=== PATIENT | male | born 1995 | race Caucasian/White ===

== ENCOUNTER 2016-03-24 20:08 | Emergency (ER) | payer OTHER ==
[2016-03-24] MEDS ORDERED: NORCO 5/325MG TABLET (BULK) As Ordered ONE (22:19)
[2016-03-24] MEDS ORDERED: IBUPROFEN 600 MG TAB As Ordered ONE (22:19)
--- NOTE | 2016-03-24 22:33 | EDDOCDS ---
Nurse's Notes [facility] Name: Manuel Parekh Age: 20 yrs Sex: Male : 1995 Arrival Date: 03/24/2016 Time: 20:08 Bed TR7 Private [facility] Diagnosis: Nondisplaced fracture of right tibial tuberosity-avulsion and suspected patellar tendon disruption Presentation: 03/24 20:28 Presenting complaint: Patient states: that he twisted his R knee today and he can't ms18 bend it at this time. Adult Sepsis Screening: The patient does not have new or worsening altered mentation. Patient's respiratory rate is less than 22. Systolic blood pressure is greater than 100. Patient has a qSOFA score of 0- Negative Sepsis Screen. Suicide/Homicide risk assessment- the patient denies having any suicidal and/or homicidal ideations and does not present with any other emotional, behavioral or mental health complaints. 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 Transition of care: patient was not received from another setting of care. 20:28 Acuity: ELIOT Level 4 ms18 20:28 Method Of Arrival: Walkin/Carried/Asstd ms18 Triage Assessment: 20:30 General: Appears in no apparent distress, uncomfortable, Behavior is appropriate for ms18 age, cooperative. Pain: Location: right knee Pain currently is 9 out of 10 on a pain scale. HIV screening NA for this visit Offered previously. Neurological: Level of Consciousness is awake, alert, obeys commands. Respiratory: No deficits noted. Derm: Skin is pink, warm & dry. Historical: - Allergies: no known allergies; - Home Meds: 1. gabapentin 600 mg Oral tab 1 tab 3 times per day 2. naproxen 500 mg Oral tab as needed - PMHx: back pain; - PSHx: none; - Social history: Smoking status: Patient states was never smoker of tobacco. No barriers to communication noted, The patient speaks fluent Latvian. - Family history: Not pertinent. - : The pt / caregiver states he / she is not on anticoagulants. Home medication list is obtained from the patient. - Exposure Risk Screening:: None identified. Screenin:30 Screening information is obtained from the patient. Fall risk: No risks identified. pml Assistance ADL's: requires no assistance with activities of daily living. Abuse/DV Screen: The patient / caregiver reports he/she is: not in a situation that causes fear, pain or injury. Nutritional screening: No deficits noted. Advance Directives: Currently, there is no health care proxy. home support is adequate. Assessment: 22:30 General: Appears in no apparent distress, comfortable, Behavior is appropriate for age, pml cooperative. Pain: Location: right knee. Neurological: Level of Consciousness is awake, alert, Oriented to person, place, time. Cardiovascular: Capillary refill < 3 seconds. Respiratory: Airway is patent Respiratory effort is even, unlabored. GI: Abdomen is non- distended. Derm: Skin is pink, warm & dry. Musculoskeletal: Circulation, motion, and sensation intact Capillary refill < 3 seconds No deformity noted. Vital Signs: 20:09 BP 133 / 65; Pulse 73; Resp 18 S; Temp 96.9(O); Pulse Ox 100% on R/A; Weight 92.08 kg dd6 (R); Height 6 ft. 2 in. (187.96 cm) (R); 20:09 Body Mass Index 26.06 (92.08 kg, 187.96 cm) dd6 Vitals: 20:09 Log In Time: March 24, 2016 at 20:07. dd6 ED Course: 20:09 Patient visited by Eladio Leal PCA. dd6 20:09 [facility]. dd6 20:09 Patient moved to Waiting dd6 20:10 Patient moved to Pre RCE dd6 20:30 Triage Initiated ms18 21:30 Patient moved to Triage 2 pml 21:38 Sadiq Eilas PA is PHCP. mo1 21:38 Isra Miguel DO is Attending Physician. mo1 21:42 Patient moved to TR1 jmb 21:42 Patient moved to Triage 2 jmb 21:56 Patient visited by Sadiq Elias PA. mo1 22:24 Nikko Rock is Referral Physician. mo1 22:29 Patient visited by Chasidy Ferguson PCA. ar3 22:29 Patient moved to TR7 ar3 22:29 Crutch training done. Knee immobilizer applied on right knee. ar3 22:30 The patient / caregiver is instructed regarding the plan of care and ED course. Patient pml has correct armband on for positive identification. Bed in low position. Call light in reach. 22:30 No IV's were initiated during this patient's visit. No procedures done that require pml assistance. Administered Medications: 22:21 Drug: Ibuprofen 600 mg [ibuprofen 600 mg tablet (1 tabs)] Route: PO; pml 22:27 Drug: HYDROcodone-acetaminophen 4 pack- 1 packets [hydrocodone 5 mg-acetaminophen 325 pml mg tablet (1 tabs)] {Co-Signature: emilia (Andrew Manzano RN).} Route: PO; 22:32 Follow up: Response: Med's dispensed home pml Order Results: There are currently no results for this order. Outcome: 22:24 Discharge ordered by Provider. mo1 22:30 Discharge Assessment: Patient awake, alert and oriented x 3. No cognitive and/or pml functional deficits noted. Patient verbalized understanding of disposition instructions. patient administered narcotics - no. The following High Risk Discharge criteria are identified: None. Discharged to home ambulatory, with crutches. Condition: good Condition: stable. Discharge instructions given to patient, Instructed on discharge instructions, follow up and referral plans. medication usage, no driving heavy equipment, crutch walking, Demonstrated understanding of instructions, medications, Pt was receptive of discharge instructions/ teaching. Prescriptions given X 1. No special radiology studies were completed. Property sent home with patient. 22:32 Patient left the ED. pml Signatures: Eladio Leal, INSTRUMENT INSTALLER INSTRUMENT INSTALLER dd6 Chasidy Ferguson, INSTRUMENT INSTALLER INSTRUMENT INSTALLER ar3 Ragini Glass RN RN pml Sadiq Elias PA PA mo1 Andrew Manzano RN RN jmb Smith, Mallory, RN RN ms18 Andrew nieto MTDD
--- NOTE | 2016-03-24 22:33 | EDDOCDS ---
Physician Documentation [facility] Name: Manuel Parekh Age: 20 yrs Sex: Male : 1995 Arrival Date: 03/24/2016 Time: 20:08 Bed TR7 Private MD: NVTaina COLEMAN Disposition: 03/24/16 22:24 Discharged to Home/Self Care. Impression: Nondisplaced fracture of right tibial tuberosity - avulsion and suspected patellar tendon disruption. - Condition is Stable. - Discharge Instructions: Knee Bracing, Knee Fracture, Adult. - Prescriptions for [place] 5- 325 mg Oral Tablet - take 1 tablet by ORAL route every 6 hours As needed MDD: 4 tabs; 20 tablet. - Medication Reconciliation, Local Pharmacy Hours form. - Follow up: Nikko Rock; When: Call to arrange an appointment; Reason: Recheck today's complaints, Continuance of care. - Problem is new. - Symptoms are unchanged. Historical: - Allergies: no known allergies; - Home Meds: 1. gabapentin 600 mg Oral tab 1 tab 3 times per day 2. naproxen 500 mg Oral tab as needed - PMHx: back pain; - PSHx: none; - Social history: Smoking status: Patient states was never smoker of tobacco. No barriers to communication noted, The patient speaks fluent Bulgarian. - Family history: Not pertinent. - : The pt / caregiver states he / she is not on anticoagulants. Home medication list is obtained from the patient. - Exposure Risk Screening:: None identified. Vital Signs: 03/24 20:09 BP 133 / 65; Pulse 73; Resp 18 S; Temp 96.9(O); Pulse Ox 100% on R/A; Weight 92.08 kg / dd6 203 lbs (R); Height 6 ft. 2 in. (187.96 cm) (R); 20:09 Body Mass Index 26.06 (92.08 kg, 187.96 cm) dd6 MDM: 21:41 Knee, Complete Ordered. EDMS 22:17 Knee Immobilizer ordered. mo1 22:17 Crutches ordered. mo1 22:17 Ibuprofen 600 mg PO once ordered. mo1 22:17 HYDROcodone-acetaminophen 4 pack- 5 mg-325 mg 1 packets PO Per package directions; mo1 Dispense with patient. 1 po q4h prn for pain ordered. Administered Medications: 22:21 Drug: Ibuprofen 600 mg [ibuprofen 600 mg tablet (1 tabs)] Route: PO; pml 22:27 Drug: HYDROcodone-acetaminophen 4 pack- 1 packets [hydrocodone 5 mg-acetaminophen 325 pml mg tablet (1 tabs)] {Co-Signature: emilia (Andrew Manzano RN).} Route: PO; 22:32 Follow up: Response: Med's dispensed home pml Signatures: Dispatcher [employer] EDMS Ragini Glass RN RN pml Sadiq Elias PA PA mo1 Karissa Stoddard RN RN ms18 Andrew nieto The chart was reviewed and I authenticate all verbal orders and agree with the evaluation and treatment provided.Corrections: (The following items were deleted from the chart) 21:41 21:15 Knee, (AP\E\Lat)+XR ordered. EDMS EDMS 21:52 21:41 Knee, complete ordered. EDMS EDMS MTDD
--- NOTE | 2016-03-25 01:11 | REP ---
Clinical: Trauma. Technique: AP, lateral, bilateral oblique and sunrise views right knee . Findings: The osseous structures and joint spaces are intact and normal. There is no evidence for acute fracture or dislocation. No joint effusion is appreciated. Lateral view demonstrates unfused tibial tuberosity with overlying mild soft tissue swelling which requires correlation to exclude [place]lake-Schlatter disease. No subcutaneous emphysema or radiodense foreign body. Impression: No acute fracture or dislocation. Lateral view demonstrates unfused tibial tuberosity with overlying mild soft tissue swelling which requires correlation to exclude Eastlake-Schlatter disease. Signed by Lizandro Maddox MD 03/25/2016 01:02 A
--- NOTE | 2016-03-26 23:33 | EDDOCDS ---
Nurse's Notes [facility] Name: Manuel Parekh Age: 20 yrs Sex: Male : 1995 Arrival Date: 03/24/2016 Time: 20:08 Bed TR7 [facility] Diagnosis: Nondisplaced fracture of right tibial tuberosity-avulsion and suspected patellar tendon disruption Presentation: 03/24 20:28 Presenting complaint: Patient states: that he twisted his R knee today and he can't ms18 bend it at this time. Adult Sepsis Screening: The patient does not have new or worsening altered mentation. Patient's respiratory rate is less than 22. Systolic blood pressure is greater than 100. Patient has a qSOFA score of 0- Negative Sepsis Screen. Suicide/Homicide risk assessment- the patient denies having any suicidal and/or homicidal ideations and does not present with any other emotional, behavioral or mental health complaints. 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 Transition of care: patient was not received from another setting of care. 20:28 Acuity: ELIOT Level 4 ms18 20:28 Method Of Arrival: Walkin/Carried/Asstd ms18 Triage Assessment: 20:30 General: Appears in no apparent distress, uncomfortable, Behavior is appropriate for ms18 age, cooperative. Pain: Location: right knee Pain currently is 9 out of 10 on a pain scale. HIV screening NA for this visit Offered previously. Neurological: Level of Consciousness is awake, alert, obeys commands. Respiratory: No deficits noted. Derm: Skin is pink, warm & dry. Historical: - Allergies: no known allergies; - Home Meds: 1. gabapentin 600 mg Oral tab 1 tab 3 times per day 2. naproxen 500 mg Oral tab as needed - PMHx: back pain; - PSHx: none; - Social history: Smoking status: Patient states was never smoker of tobacco. No barriers to communication noted, The patient speaks fluent Sami. - Family history: Not pertinent. - : The pt / caregiver states he / she is not on anticoagulants. Home medication list is obtained from the patient. - Exposure Risk Screening:: None identified. Screenin:30 Screening information is obtained from the patient. Fall risk: No risks identified. pml Assistance ADL's: requires no assistance with activities of daily living. Abuse/DV Screen: The patient / caregiver reports he/she is: not in a situation that causes fear, pain or injury. Nutritional screening: No deficits noted. Advance Directives: Currently, there is no health care proxy. home support is adequate. Assessment: 22:30 General: Appears in no apparent distress, comfortable, Behavior is appropriate for age, pml cooperative. Pain: Location: right knee. Neurological: Level of Consciousness is awake, alert, Oriented to person, place, time. Cardiovascular: Capillary refill < 3 seconds. Respiratory: Airway is patent Respiratory effort is even, unlabored. GI: Abdomen is non- distended. Derm: Skin is pink, warm & dry. Musculoskeletal: Circulation, motion, and sensation intact Capillary refill < 3 seconds No deformity noted. Vital Signs: 20:09 BP 133 / 65; Pulse 73; Resp 18 S; Temp 96.9(O); Pulse Ox 100% on R/A; Weight 92.08 kg dd6 (R); Height 6 ft. 2 in. (187.96 cm) (R); 20:09 Body Mass Index 26.06 (92.08 kg, 187.96 cm) dd6 Vitals: 20:09 Log In Time: March 24, 2016 at 20:07. dd6 ED Course: 20:09 Patient visited by Eladio Leal PCA. dd6 20:09 [facility]. dd6 20:09 Patient moved to Waiting dd6 20:10 Patient moved to Pre RCE dd6 20:30 Triage Initiated ms18 21:30 Patient moved to Triage 2 pml 21:38 Sadiq Elias PA is PHCP. mo1 21:38 Isra Miguel DO is Attending Physician. mo1 21:42 Patient moved to TR1 jmb 21:42 Patient moved to Triage 2 jmb 21:56 Patient visited by Sadiq Elias PA. mo1 22:24 Nikko Rock is Referral Physician. mo1 22:29 Patient visited by Chasidy Ferguson PCA. ar3 22:29 Patient moved to TR7 ar3 22:29 Crutch training done. Knee immobilizer applied on right knee. ar3 22:30 The patient / caregiver is instructed regarding the plan of care and ED course. Patient pml has correct armband on for positive identification. Bed in low position. Call light in reach. 22:30 No IV's were initiated during this patient's visit. No procedures done that require pml assistance. 22:36 [facility] Payment Agreement was scanned into [employer] and attached to record. renny 22:37 Patient name changed from Manuel\S\Selwyn\S\Parekh\S\ to Manuel\S\ \S\Parekh. EDMS 03/25 01:43 Knee, Complete Returned. EDMS 10:37 T-Sheet-- Draft Copy was scanned into [employer] and attached to record. gb Administered Medications: 03/24 22:21 Drug: Ibuprofen 600 mg [ibuprofen 600 mg tablet (1 tabs)] Route: PO; pml 22:27 Drug: HYDROcodone-acetaminophen 4 pack- 1 packets [hydrocodone 5 mg-acetaminophen 325 pml mg tablet (1 tabs)] {Co-Signature: emilia (Andrew Manzano RN).} Route: PO; 22:32 Follow up: Response: Med's dispensed home pml Order Results: Radiology Order: Knee, Complete Test: Knee, Complete REASON FOR EXAMINATION: Trauma; Clinical: Trauma.; ; Technique: AP, lateral, bilateral oblique and sunrise views right knee .; ; Findings: The osseous structures and joint spaces are intact and normal. There; is no evidence for acute fracture or dislocation. No joint effusion is; appreciated. Lateral view demonstrates unfused tibial tuberosity with overlying; mild soft tissue swelling which requires correlation to exclude Diana-Schlatter; disease. No subcutaneous emphysema or radiodense foreign body.; ; Impression:; No acute fracture or dislocation.; Lateral view demonstrates unfused tibial tuberosity with overlying mild soft; tissue swelling which requires correlation to exclude Diana-Schlatter disease.; ; ; Signed by; Lizandro Maddox MD 03/25/2016 01:02 A; Outcome: 22:24 Discharge ordered by Provider. mo1 22:30 Discharge Assessment: Patient awake, alert and oriented x 3. No cognitive and/or pml functional deficits noted. Patient verbalized understanding of disposition instructions. patient administered narcotics - no. The following High Risk Discharge criteria are identified: None. Discharged to home ambulatory, with crutches. Condition: good Condition: stable. Discharge instructions given to patient, Instructed on discharge instructions, follow up and referral plans. medication usage, no driving heavy equipment, crutch walking, Demonstrated understanding of instructions, medications, Pt was receptive of discharge instructions/ teaching. Prescriptions given X 1. No special radiology studies were completed. Property sent home with patient. 22:32 Patient left the ED. pml Signatures: Dispatcher [employer] EDMS Ashley Viera, Reg Reg gb Eladio Leal, WELCOME WAGON HOSTESS WELCOME WAGON HOSTESS dd6 Chasidy Ferguson, WELCOME WAGON HOSTESS WELCOME WAGON HOSTESS ar3 Ragini Glass,RN RN pml Sadiq Elias PA PA mo1 Andrew Manzano RN RN royalb Karissa Stoddard RN RN ms18 Camila Ren RN Chart Complete MTDD
--- NOTE | 2016-03-26 23:33 | EDDOCDS ---
Physician Documentation [facility] Name: Manuel Parekh Age: 20 yrs Sex: Male : 1995 Arrival Date: 03/24/2016 Time: 20:08 Bed TR7 Private MD: MATaina COLEMAN Disposition: 03/24/16 22:24 Discharged to Home/Self Care. Impression: Nondisplaced fracture of right tibial tuberosity - avulsion and suspected patellar tendon disruption. - Condition is Stable. - Discharge Instructions: Knee Bracing, Knee Fracture, Adult. - Prescriptions for [place] 5- 325 mg Oral Tablet - take 1 tablet by ORAL route every 6 hours As needed MDD: 4 tabs; 20 tablet. - Medication Reconciliation, Local Pharmacy Hours form. - Follow up: Nikko Rock; When: Call to arrange an appointment; Reason: Recheck today's complaints, Continuance of care. - Problem is new. - Symptoms are unchanged. Historical: - Allergies: no known allergies; - Home Meds: 1. gabapentin 600 mg Oral tab 1 tab 3 times per day 2. naproxen 500 mg Oral tab as needed - PMHx: back pain; - PSHx: none; - Social history: Smoking status: Patient states was never smoker of tobacco. No barriers to communication noted, The patient speaks fluent Kyrgyz. - Family history: Not pertinent. - : The pt / caregiver states he / she is not on anticoagulants. Home medication list is obtained from the patient. - Exposure Risk Screening:: None identified. Vital Signs: 03/24 20:09 BP 133 / 65; Pulse 73; Resp 18 S; Temp 96.9(O); Pulse Ox 100% on R/A; Weight 92.08 kg / dd6 203 lbs (R); Height 6 ft. 2 in. (187.96 cm) (R); 20:09 Body Mass Index 26.06 (92.08 kg, 187.96 cm) dd6 MDM: 21:41 Knee, Complete Ordered. EDMS 22:17 Knee Immobilizer ordered. mo1 22:17 Crutches ordered. mo1 22:17 Ibuprofen 600 mg PO once ordered. mo1 22:17 HYDROcodone-acetaminophen 4 pack- 5 mg-325 mg 1 packets PO Per package directions; mo1 Dispense with patient. 1 po q4h prn for pain ordered. 22:36 [facility] Payment Agreement was scanned into [employer] and attached to record. [facility] 22:36 Financial registration complete. [facility] 03/25 10:37 T-Sheet-- Draft Copy was scanned into [employer] and attached to record. gb Administered Medications: 03/24 22:21 Drug: Ibuprofen 600 mg [ibuprofen 600 mg tablet (1 tabs)] Route: PO; pml 22:27 Drug: HYDROcodone-acetaminophen 4 pack- 1 packets [hydrocodone 5 mg-acetaminophen 325 pml mg tablet (1 tabs)] {Co-Signature: emilia (Andrew Manzano RN).} Route: PO; 22:32 Follow up: Response: Med's dispensed home pml Signatures: Dispatcher [employer] EDMS Ashley Viera, Dagoberto Reg Ragini Gupta,RN RN pml Sadiq Elias PA PA moKarissa Rader RN RN ms18 Camila Ren RN The chart was reviewed and I authenticate all verbal orders and agree with the evaluation and treatment provided.Corrections: (The following items were deleted from the chart) 21:41 21:15 Knee, (AP\E\Lat)+XR ordered. EDMS EDMS 21:52 21:41 Knee, complete ordered. EDMS EDMS Attachments: :36 [facility] Payment Agreement [facility] 03/25 10:37 T-Sheet-- Draft Copy gb Chart Complete MTDD
--- NOTE | 2016-03-26 23:33 | EDDOCDS ---
Physician Documentation [facility] Name: Manuel Parekh Age: 20 yrs Sex: Male : 1995 Arrival Date: 03/24/2016 Time: 20:08 Bed TR7 Private MD: WVTaina COLEMAN Disposition: 03/24/16 22:24 Discharged to Home/Self Care. Impression: Nondisplaced fracture of right tibial tuberosity - avulsion and suspected patellar tendon disruption. - Condition is Stable. - Discharge Instructions: Knee Bracing, Knee Fracture, Adult. - Prescriptions for [place] 5- 325 mg Oral Tablet - take 1 tablet by ORAL route every 6 hours As needed MDD: 4 tabs; 20 tablet. - Medication Reconciliation, Local Pharmacy Hours form. - Follow up: Nikko Rock; When: Call to arrange an appointment; Reason: Recheck today's complaints, Continuance of care. - Problem is new. - Symptoms are unchanged. Historical: - Allergies: no known allergies; - Home Meds: 1. gabapentin 600 mg Oral tab 1 tab 3 times per day 2. naproxen 500 mg Oral tab as needed - PMHx: back pain; - PSHx: none; - Social history: Smoking status: Patient states was never smoker of tobacco. No barriers to communication noted, The patient speaks fluent Kinyarwanda. - Family history: Not pertinent. - : The pt / caregiver states he / she is not on anticoagulants. Home medication list is obtained from the patient. - Exposure Risk Screening:: None identified. Vital Signs: 03/24 20:09 BP 133 / 65; Pulse 73; Resp 18 S; Temp 96.9(O); Pulse Ox 100% on R/A; Weight 92.08 kg / dd6 203 lbs (R); Height 6 ft. 2 in. (187.96 cm) (R); 20:09 Body Mass Index 26.06 (92.08 kg, 187.96 cm) dd6 MDM: 21:41 Knee, Complete Ordered. EDMS 22:17 Knee Immobilizer ordered. mo1 22:17 Crutches ordered. mo1 22:17 Ibuprofen 600 mg PO once ordered. mo1 22:17 HYDROcodone-acetaminophen 4 pack- 5 mg-325 mg 1 packets PO Per package directions; mo1 Dispense with patient. 1 po q4h prn for pain ordered. 22:36 [facility] Payment Agreement was scanned into [employer] and attached to record. [facility] 22:36 Financial registration complete. [facility] 03/25 10:37 T-Sheet-- Draft Copy was scanned into [employer] and attached to record. gb Administered Medications: 03/24 22:21 Drug: Ibuprofen 600 mg [ibuprofen 600 mg tablet (1 tabs)] Route: PO; pml 22:27 Drug: HYDROcodone-acetaminophen 4 pack- 1 packets [hydrocodone 5 mg-acetaminophen 325 pml mg tablet (1 tabs)] {Co-Signature: emilia (Andrew Manzano RN).} Route: PO; 22:32 Follow up: Response: Med's dispensed home pml Signatures: Dispatcher [employer] EDMS Ashley Viera, Dagoberto Reg Ragini Gupta,RN RN pml Sadiq Elias PA PA moKarissa Rader RN RN ms18 Camila Ren RN The chart was reviewed and I authenticate all verbal orders and agree with the evaluation and treatment provided.Corrections: (The following items were deleted from the chart) 21:41 21:15 Knee, (AP\E\Lat)+XR ordered. EDMS EDMS 21:52 21:41 Knee, complete ordered. EDMS EDMS Attachments: :36 [facility] Payment Agreement [facility] 03/25 10:37 T-Sheet-- Draft Copy gb Chart Complete MTDD
== END 2016-03-24 22:32 | disposition home or self-care (01) ==
LOC: M ED 20:08
DX: S82.101A Unspecified fracture of upper end of right tibia, initial encounter for closed fracture (principal); W19.XXXA Unspecified fall, initial encounter; Y92.410 Unspecified street and highway as the place of occurrence of the external cause; Y93.89 Activity, other specified; Y99.8 Other external cause status; M54.9 Dorsalgia, unspecified; Z79.899 Other long term (current) drug therapy

== ENCOUNTER 2016-04-06 18:20 | Emergency (ER) | payer OTHER ==
[2016-04-06] MEDS ORDERED: METHOCARBAMOL 500 MG TAB As Ordered ONE (18:43)
[2016-04-06] MEDS ORDERED: IBUPROFEN 800 MG TAB As Ordered ONE (18:44)
--- NOTE | 2016-04-06 19:07 | EDDOCDS ---
Physician Documentation [facility] Name: Manuel Parekh Age: 20 yrs Sex: Male : 1995 Arrival Date: 04/06/2016 Time: 18:20 Bed I7 / 29 Private MD: [facility] [place] Disposition: 04/06/16 18:40 Discharged to Home/Self Care. Impression: Low back pain - + Wadell's signs x5, Malingerer [conscious simulation]. - Condition is Stable. - Discharge Instructions: Back Pain, Adult, [id number]. - Prescriptions for Diclofenac Sodium 75 mg Oral Tablet, Delayed Release (E.C.) - take 1 tablet by ORAL route 2 times per day; 30 tablet. Robaxin- 750 750 mg Oral Tablet - take 1 tablet by ORAL route every 6 hours As needed; 40 tablet. - Medication Reconciliation, Local Pharmacy Hours form. - Follow up: [facility]; When: Tomorrow; Reason: Further diagnostic work-up, Recheck today's complaints, Continuance of care. - Problem is new. - Symptoms are unchanged. Historical: - Allergies: no known allergies; - Home Meds: 1. gabapentin 600 mg Oral tab 1 tab 3 times per day (Last dose: 04/06/2016) 2. naproxen 500 mg Oral tab as needed - PMHx: back pain; - PSHx: none; - Social history: Smoking status: Patient states was never smoker of tobacco. No barriers to communication noted, The patient speaks fluent Swedish, Speaks appropriately for age. - Family history: Not pertinent. - : The pt / caregiver states he / she is not on anticoagulants. Home medication list is obtained from the patient. - Exposure Risk Screening:: None identified. Vital Signs: 04/06 18:28 BP 166 / 71; Pulse 86; Resp 20; Temp 99.0(O); Pulse Ox 100% on R/A; Weight 88.45 kg / sew 195 lbs; Height 6 ft. 1 in. (185.42 cm); Pain 10/10; 18:28 Body Mass Index 25.73 (88.45 kg, 185.42 cm) sew MDM: 18:39 Ibuprofen 800 mg PO once ordered. btw 18:40 Methocarbamol 1 grams PO once ordered. btw 18:54 Financial registration complete. ks16 19:01 [facility] Payment Agreement was scanned into [employer] and attached to record. ks16 Administered Medications: 18:54 Drug: Ibuprofen 800 mg [ibuprofen 800 mg tablet (1 tabs)] Route: PO; js13 18:54 Follow up: Response: Pt left department before re-evaluation is appropriate js13 18:54 Drug: Methocarbamol 1 grams [methocarbamol 500 mg tablet (2 tabs)] Route: PO; js13 18:54 Follow up: Response: Pt left department before re-evaluation is appropriate js13 Signatures: Paige Hawkins,RN RN kr3 Josef Arguello, RN RN ml6 Humberto Richards PA PA btw Sullivan, JenniferRN RN js13 Ann-Marie Bernard, Reg Reg ks16 The chart was reviewed and I authenticate all verbal orders and agree with the evaluation and treatment provided.Attachments: 19:01 [facility] Payment Agreement ks16 MTDD
--- NOTE | 2016-04-06 19:07 | EDDOCDS ---
Nurse's Notes [facility] Name: Manuel Parekh Age: 20 yrs Sex: Male : 1995 Arrival Date: 04/06/2016 Time: 18:20 Bed I7 / 29 [facility] Diagnosis: Low back pain-+ Wadell's signs x5;Malingerer [conscious simulation] Presentation: 04/06 18:25 Presenting complaint: Patient states: low back pain with radiation into left leg. Pain kr3 extreme for last few hours since walking up 2 stairs. Acute neurological deficits are not present. Mechanism of Injury: No Mechanism of Injury. Adult Sepsis Screening: The patient does not have new or worsening altered mentation. Patient's respiratory rate is less than 22. Systolic blood pressure is greater than 100. Patient has a qSOFA score of 0- Negative Sepsis Screen. Suicide/Homicide risk assessment- the patient denies having any suicidal and/or homicidal ideations and does not present with any other emotional, behavioral or mental health complaints. 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 Transition of care: patient was not received from another setting of care. 18:25 Acuity: ELIOT Level 3 kr3 18:25 Method Of Arrival: Wheelchair kr3 Triage Assessment: 18:26 General: Appears uncomfortable, Behavior is cooperative. Pain: Location: low back area kr3 Pain currently is 10 out of 10 on a pain scale. Pain: Aggravated by increased activity, repositioning, weight bearing. HIV screening NA for this visit Offered previously. Respiratory: Respiratory effort is even, unlabored. Derm: Skin is normal. Musculoskeletal: Range of motion intact in all extremities. Historical: - Allergies: no known allergies; - Home Meds: 1. gabapentin 600 mg Oral tab 1 tab 3 times per day (Last dose: 04/06/2016) 2. naproxen 500 mg Oral tab as needed - PMHx: back pain; - PSHx: none; - Social history: Smoking status: Patient states was never smoker of tobacco. No barriers to communication noted, The patient speaks fluent Cypriot, Speaks appropriately for age. - Family history: Not pertinent. - : The pt / caregiver states he / she is not on anticoagulants. Home medication list is obtained from the patient. - Exposure Risk Screening:: None identified. Screenin:39 Screening information is obtained from the patient. Fall risk: No risks identified. ml6 Assistance ADL's: requires no assistance with activities of daily living. Abuse/DV Screen: The patient / caregiver reports he/she is: not in a situation that causes fear, pain or injury. Nutritional screening: No deficits noted. Advance Directives: Currently, there is. home support is adequate. Assessment: 18:38 General: Appears distressed. Pain: Location: back and low back area Pain currently is ml6 20 out of 10 on a pain scale. Pain does not radiate. Quality of pain is described as aching, Pain began 30 min ago Is continuous. Cardiovascular: No deficits noted. Respiratory: No deficits noted. GI: No deficits noted. 18:54 General: Patient upset about not being admitted for pain management and was yelling at [facility] staff. Patient asked to see the PA again, Humberto Richards PA came in to see patient and explained that his back pain was muscular in nature and he was neurologically intact and passed all his exam tests. Patient is yelling and swearing saying that he is being treated like this because he is . Patient is laying on stretcher lifting his head off of stretcher almost doing a full sit up. Patient is not showing any outward signs of pain while he is yelling and swearing. Patient stating he will just go see the joseph PA at [facility] tomorrow. Patient was given pain medication for his pain and discharged. Patient refused to stay for reevaluation. . 19:02 General: patient refusing any assistance out to car, patient states "I don't want you ml6 to touch me, you don't care", patient curing at staff as he is wheeled out attempted to discuss curving his language in front of the children present, patient refused. Patient given number for Catrina Pepe, patient states "You can just shove it up your ass". walked out to car with patient and his friend. patient did safely get in friend's vehicle. patient continued to refuse any assistance by staff. Vital Signs: 18:28 BP 166 / 71; Pulse 86; Resp 20; Temp 99.0(O); Pulse Ox 100% on R/A; Weight 88.45 kg; sew Height 6 ft. 1 in. (185.42 cm); Pain 10/10; 18:28 Body Mass Index 25.73 (88.45 kg, 185.42 cm) [facility] [place] Vitals: 18:28 Log In Time: April 06, 2016 at 18:28. sew ED Course: 18:20 Patient visited by Yelena Babin PCA. rs6 18:20 [facility] is Private Physician. rs6 18:20 Patient moved to Waiting rs6 18:24 Patient moved to I7 kr3 18:26 Triage Initiated kr3 18:29 Humberto Richards PA is PHCP. btw 18:29 Ena Grace MD is Attending Physician. btw 18:29 Patient visited by Humberto Richards PA. btw 18:29 Patient visited by Ena Mckay. sew 18:39 The patient / caregiver is instructed regarding the plan of care and ED course. ml6 18:40 [facility] is Referral Physician. btw 18:54 No IV's were initiated during this patient's visit. No procedures done that require js13 assistance. 19:00 Patient name changed from Manuel\\S\\\\S\\Parekh\\S\\ to Manuel\\S\\ \\S\\Parekh. EDMS 19:01 [facility] Payment Agreement was scanned into [employer] and attached to record. ks16 Administered Medications: 18:54 Drug: Ibuprofen 800 mg [ibuprofen 800 mg tablet (1 tabs)] Route: PO; js13 18:54 Follow up: Response: Pt left department before re-evaluation is appropriate js13 18:54 Drug: Methocarbamol 1 grams [methocarbamol 500 mg tablet (2 tabs)] Route: PO; js13 18:54 Follow up: Response: Pt left department before re-evaluation is appropriate js13 Order Results: There are currently no results for this order. Outcome: 18:40 Discharge ordered by Provider. btw 18:54 Discharge Assessment: Patient awake, alert and oriented x 3. No cognitive and/or js13 functional deficits noted. Patient verbalized understanding of disposition instructions. patient administered narcotics - no. The following High Risk Discharge criteria are identified: None. Discharged to home via wheelchair, with friend. Condition: stable. Discharge instructions given to patient, friend, Instructed on discharge instructions, follow up and referral plans. medication usage, Demonstrated understanding of instructions, medications, Patient was not receptive of discharge instructions. Other See note in general assessment. Prescriptions given X 2. No special radiology studies were completed. Property :Personal belongings accompany Pt. 19:06 Patient left the ED. ml6 Signatures: Dispatcher [employer] EDPaige Jones,RN RN kr3 Josef Arguello RN RN ml6 Humberto Richards PA PA btw Sullivan, JenniferRN RN js13 Woody, Yelena Barclay, DIOMEDES RN [employer] rs6 Ann-Marie Bernard, Reg Reg ks16 MTDD
--- NOTE | 2016-04-08 20:07 | EDDOCDS ---
Physician Documentation [facility] Name: Manuel Parekh Age: 20 yrs Sex: Male : 1995 Arrival Date: 04/06/2016 Time: 18:20 Bed I7 / 29 Private MD: [facility] [place] Disposition: 04/06/16 18:40 Discharged to Home/Self Care. Impression: Low back pain - + Wadell's signs x5, Malingerer [conscious simulation]. - Condition is Stable. - Discharge Instructions: Back Pain, Adult, [id number]. - Prescriptions for Diclofenac Sodium 75 mg Oral Tablet, Delayed Release (E.C.) - take 1 tablet by ORAL route 2 times per day; 30 tablet. Robaxin- 750 750 mg Oral Tablet - take 1 tablet by ORAL route every 6 hours As needed; 40 tablet. - Medication Reconciliation, Local Pharmacy Hours form. - Follow up: [facility]; When: Tomorrow; Reason: Further diagnostic work-up, Recheck today's complaints, Continuance of care. - Problem is new. - Symptoms are unchanged. Historical: - Allergies: no known allergies; - Home Meds: 1. gabapentin 600 mg Oral tab 1 tab 3 times per day (Last dose: 04/06/2016) 2. naproxen 500 mg Oral tab as needed - PMHx: back pain; - PSHx: none; - Social history: Smoking status: Patient states was never smoker of tobacco. No barriers to communication noted, The patient speaks fluent Uzbek, Speaks appropriately for age. - Family history: Not pertinent. - : The pt / caregiver states he / she is not on anticoagulants. Home medication list is obtained from the patient. - Exposure Risk Screening:: None identified. Vital Signs: 04/06 18:28 BP 166 / 71; Pulse 86; Resp 20; Temp 99.0(O); Pulse Ox 100% on R/A; Weight 88.45 kg / sew 195 lbs; Height 6 ft. 1 in. (185.42 cm); Pain 10/10; 18:28 Body Mass Index 25.73 (88.45 kg, 185.42 cm) sew MDM: 18:39 Ibuprofen 800 mg PO once ordered. btw 18:40 Methocarbamol 1 grams PO once ordered. btw 18:54 Financial registration complete. ks16 19: [facility] Payment Agreement was scanned into [employer] and attached to record. ks16 04/07 10:45 T-Sheet-- Draft Copy was scanned into [employer] and attached to record. gb Administered Medications: 04/06 18:54 Drug: Ibuprofen 800 mg [ibuprofen 800 mg tablet (1 tabs)] Route: PO; js13 18:54 Follow up: Response: Pt left department before re-evaluation is appropriate js13 18:54 Drug: Methocarbamol 1 grams [methocarbamol 500 mg tablet (2 tabs)] Route: PO; js13 18:54 Follow up: Response: Pt left department before re-evaluation is appropriate js13 Signatures: Ashley Viera, Reg Reg gb Paige Hawkins,RN RN kr3 Josef Arguello, RN RN ml6 Humberto Richards PA PA btw Sullivan, Jennifer,RN RN js13 Ann-Marie Bernard, Reg Reg ks16 The chart was reviewed and I authenticate all verbal orders and agree with the evaluation and treatment provided.Attachments: 19:01 [facility] Payment Agreement ks16 04/07 10:45 T-Sheet-- Draft Copy gb Chart Complete MTDD
--- NOTE | 2016-04-08 20:07 | EDDOCDS ---
Nurse's Notes [facility] Name: Manuel Parekh Age: 20 yrs Sex: Male : 1995 Arrival Date: 04/06/2016 Time: 18:20 Bed I7 / 29 [facility]: Low back pain-+ Wadell's signs x5;Malingerer [conscious simulation] Presentation: 04/06 18:25 Presenting complaint: Patient states: low back pain with radiation into left leg. Pain kr3 extreme for last few hours since walking up 2 stairs. Acute neurological deficits are not present. Mechanism of Injury: No Mechanism of Injury. Adult Sepsis Screening: The patient does not have new or worsening altered mentation. Patient's respiratory rate is less than 22. Systolic blood pressure is greater than 100. Patient has a qSOFA score of 0- Negative Sepsis Screen. Suicide/Homicide risk assessment- the patient denies having any suicidal and/or homicidal ideations and does not present with any other emotional, behavioral or mental health complaints. 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 Transition of care: patient was not received from another setting of care. 18:25 Acuity: ELIOT Level 3 kr3 18:25 Method Of Arrival: Wheelchair kr3 Triage Assessment: 18:26 General: Appears uncomfortable, Behavior is cooperative. Pain: Location: low back area kr3 Pain currently is 10 out of 10 on a pain scale. Pain: Aggravated by increased activity, repositioning, weight bearing. HIV screening NA for this visit Offered previously. Respiratory: Respiratory effort is even, unlabored. Derm: Skin is normal. Musculoskeletal: Range of motion intact in all extremities. Historical: - Allergies: no known allergies; - Home Meds: 1. gabapentin 600 mg Oral tab 1 tab 3 times per day (Last dose: 04/06/2016) 2. naproxen 500 mg Oral tab as needed - PMHx: back pain; - PSHx: none; - Social history: Smoking status: Patient states was never smoker of tobacco. No barriers to communication noted, The patient speaks fluent Norwegian, Speaks appropriately for age. - Family history: Not pertinent. - : The pt / caregiver states he / she is not on anticoagulants. Home medication list is obtained from the patient. - Exposure Risk Screening:: None identified. Screenin:39 Screening information is obtained from the patient. Fall risk: No risks identified. ml6 Assistance ADL's: requires no assistance with activities of daily living. Abuse/DV Screen: The patient / caregiver reports he/she is: not in a situation that causes fear, pain or injury. Nutritional screening: No deficits noted. Advance Directives: Currently, there is. home support is adequate. Assessment: 18:38 General: Appears distressed. Pain: Location: back and low back area Pain currently is ml6 20 out of 10 on a pain scale. Pain does not radiate. Quality of pain is described as aching, Pain began 30 min ago Is continuous. Cardiovascular: No deficits noted. Respiratory: No deficits noted. GI: No deficits noted. 18:54 General: Patient upset about not being admitted for pain management and was yelling at [facility] staff. Patient asked to see the PA again, Humberto Richards PA came in to see patient and explained that his back pain was muscular in nature and he was neurologically intact and passed all his exam tests. Patient is yelling and swearing saying that he is being treated like this because he is . Patient is laying on stretcher lifting his head off of stretcher almost doing a full sit up. Patient is not showing any outward signs of pain while he is yelling and swearing. Patient stating he will just go see the joseph PA at [facility] tomorrow. Patient was given pain medication for his pain and discharged. Patient refused to stay for reevaluation. . 19:02 General: patient refusing any assistance out to car, patient states "I don't want you ml6 to touch me, you don't care", patient curing at staff as he is wheeled out attempted to discuss curving his language in front of the children present, patient refused. Patient given number for Catrina Pepe, patient states "You can just shove it up your ass". walked out to car with patient and his friend. patient did safely get in friend's vehicle. patient continued to refuse any assistance by staff. Vital Signs: 18:28 BP 166 / 71; Pulse 86; Resp 20; Temp 99.0(O); Pulse Ox 100% on R/A; Weight 88.45 kg; sew Height 6 ft. 1 in. (185.42 cm); Pain 10/10; 18:28 Body Mass Index 25.73 (88.45 kg, 185.42 cm) sew Vitals: 18:28 Log In Time: April 06, 2016 at 18:28. sew ED Course: 18:20 Patient visited by Yelena Babin PCA. rs6 18:20 [facility] is Private Physician. rs6 18:20 Patient moved to Waiting rs6 18:24 Patient moved to I7 / kr3 18:26 Triage Initiated kr3 18:29 Humberto Richards PA is PHCP. btw 18:29 Ena Grace MD is Attending Physician. btw 18:29 Patient visited by Humberto Richards PA. btw 18:29 Patient visited by Ena Mckay. sew 18:39 The patient / caregiver is instructed regarding the plan of care and ED course. ml6 18:40 [facility] is Referral Physician. btw 18:54 No IV's were initiated during this patient's visit. No procedures done that require js13 assistance. 19:00 Patient name changed from Manuel\\S\\\\S\\Parekh\\S\\ to Manuel\\S\\ \\S\\Parekh. EDMS 19:01 [facility] Payment Agreement was scanned into [employer] and attached to record. ks16 02 10:45 T-Sheet-- Draft Copy was scanned into [employer] and attached to record. gb Administered Medications: 02 18:54 Drug: Ibuprofen 800 mg [ibuprofen 800 mg tablet (1 tabs)] Route: PO; js13 18:54 Follow up: Response: Pt left department before re-evaluation is appropriate js13 18:54 Drug: Methocarbamol 1 grams [methocarbamol 500 mg tablet (2 tabs)] Route: PO; js13 18:54 Follow up: Response: Pt left department before re-evaluation is appropriate js13 Order Results: There are currently no results for this order. Outcome: 18:40 Discharge ordered by Provider. btw 18:54 Discharge Assessment: Patient awake, alert and oriented x 3. No cognitive and/or js13 functional deficits noted. Patient verbalized understanding of disposition instructions. patient administered narcotics - no. The following High Risk Discharge criteria are identified: None. Discharged to home via wheelchair, with friend. Condition: stable. Discharge instructions given to patient, friend, Instructed on discharge instructions, follow up and referral plans. medication usage, Demonstrated understanding of instructions, medications, Patient was not receptive of discharge instructions. Other See note in general assessment. Prescriptions given X 2. No special radiology studies were completed. Property :Personal belongings accompany Pt. 19:06 Patient left the ED. ml6 Signatures: Dispatcher [employer] EDMI Ashley Viera, Reg Reg gb Paige Hawkins,RN RN kr3 Josef Arguello RN RN ml6 Humberto Richards PA PA btw Sullivan, Jennifer,RN RN js13 Woody, Yelena Barclay, ENGINEER/CONDUCTOR ENGINEER/CONDUCTOR rs6 Ann-Marie Bernard, Reg Reg ks16 Chart Complete MTDD
--- NOTE | 2016-04-08 20:07 | EDDOCDS ---
Physician Documentation [facility] Name: Manuel Parekh Age: 20 yrs Sex: Male : 1995 Arrival Date: 04/06/2016 Time: 18:20 Bed I7 / 29 Private MD: [facility] [place] Disposition: 04/06/16 18:40 Discharged to Home/Self Care. Impression: Low back pain - + Wadell's signs x5, Malingerer [conscious simulation]. - Condition is Stable. - Discharge Instructions: Back Pain, Adult, [id number]. - Prescriptions for Diclofenac Sodium 75 mg Oral Tablet, Delayed Release (E.C.) - take 1 tablet by ORAL route 2 times per day; 30 tablet. Robaxin- 750 750 mg Oral Tablet - take 1 tablet by ORAL route every 6 hours As needed; 40 tablet. - Medication Reconciliation, Local Pharmacy Hours form. - Follow up: [facility]; When: Tomorrow; Reason: Further diagnostic work-up, Recheck today's complaints, Continuance of care. - Problem is new. - Symptoms are unchanged. Historical: - Allergies: no known allergies; - Home Meds: 1. gabapentin 600 mg Oral tab 1 tab 3 times per day (Last dose: 04/06/2016) 2. naproxen 500 mg Oral tab as needed - PMHx: back pain; - PSHx: none; - Social history: Smoking status: Patient states was never smoker of tobacco. No barriers to communication noted, The patient speaks fluent Bengali, Speaks appropriately for age. - Family history: Not pertinent. - : The pt / caregiver states he / she is not on anticoagulants. Home medication list is obtained from the patient. - Exposure Risk Screening:: None identified. Vital Signs: 04/06 18:28 BP 166 / 71; Pulse 86; Resp 20; Temp 99.0(O); Pulse Ox 100% on R/A; Weight 88.45 kg / sew 195 lbs; Height 6 ft. 1 in. (185.42 cm); Pain 10/10; 18:28 Body Mass Index 25.73 (88.45 kg, 185.42 cm) sew MDM: 18:39 Ibuprofen 800 mg PO once ordered. btw 18:40 Methocarbamol 1 grams PO once ordered. btw 18:54 Financial registration complete. ks16 19: [facility] Agreement was scanned into [employer] and attached to record. ks16 04/07 10:45 T-Sheet-- Draft Copy was scanned into [employer] and attached to record. gb Administered Medications: 04/06 18:54 Drug: Ibuprofen 800 mg [ibuprofen 800 mg tablet (1 tabs)] Route: PO; js13 18:54 Follow up: Response: Pt left department before re-evaluation is appropriate js13 18:54 Drug: Methocarbamol 1 grams [methocarbamol 500 mg tablet (2 tabs)] Route: PO; js13 18:54 Follow up: Response: Pt left department before re-evaluation is appropriate js13 Signatures: Ashley Viera, Reg Reg gb Paige Hawkins,RN RN kr3 Josef Arguello, RN RN ml6 Humberto Richards PA PA btw Sullivan, Jennifer,RN RN js13 Ann-Marie Bernard, Reg Reg ks16 The chart was reviewed and I authenticate all verbal orders and agree with the evaluation and treatment provided.Attachments: 19:01 [facility] Agreement ks16 04/07 10:45 T-Sheet-- Draft Copy gb Chart Complete MTDD
== END 2016-04-06 19:06 | disposition home or self-care (01) ==
LOC: M ED 18:20
DX: M54.5 Low back pain (principal); Z76.5 Malingerer [conscious simulation]; Z79.899 Other long term (current) drug therapy